=== PATIENT | female | born 1950 | race Caucasian/White ===

== ENCOUNTER 2016-09-12 14:39 | Inpatient (IN) | payer MEDICARE, OTHER ==
[~2016-09-12] VITALS: Ht 157.5 cm; Wt 85.9 kg
[~2016-09-12 14:39] MED LIST: ACYC200O PO; ANTIDEPRESSANT; ASPI81TA82 PO; BACT800T5 PO; COZA25TA PO; HYOS0.1251 PO; MINO100T PO; NEXI10GR PO; TRAZ50TA4 PO; ZOFR4TAB3 SL
[2016-09-12 14:43] VITALS: BP 122/63; PULSE 94; RESP 16; TEMP 98; O2SAT 96
[2016-09-12] MEDS ORDERED: LOSA25TA PO (14:59)
[2016-09-12] MEDS ORDERED: NEXI40CA PO (14:59)
[2016-09-12] MEDS ORDERED: ZOFR4TAB PO (14:59)
[2016-09-12] MEDS ORDERED: TRAZ100T4 PO (14:59)
[2016-09-12] MEDS ORDERED: SODIUM CHLOR 0.9% 1000 ML INJ 1,000 ML IV SCH (15:02)
[2016-09-12] MEDS ORDERED: MORPHINE SULFATE 4 MG/ML INJ IV PUSH ONE ×2 (15:15→17:45)
[2016-09-12] MEDS ORDERED: ONDANSETRON HCL 4 MG/2 ML VIAL IVP ONE (15:15)
[2016-09-12 15:41] LABS: AUTOMATED NEUTROPHIL # 5.7 TH/MM3 (1.8-7.7); BASOPHIL % 0.6 % (0.0-2.0); BLOOD, URINE NEG (NEG); EOSINOPHIL # 0.1 TH/MM3 (0-0.4); EOSINOPHIL % 1.4 % (0.0-4.0); GLUCOSE,URINE NEG (NEG); HEMATOCRIT 36.4 % (35.0-46.0); HEMO FLAGS DIFF FINAL; KETONE, URINE NEG (NEG); LYMPH % 10.3 % (9.0-44.0); LYMPHOCYTE # 0.7 TH/MM3 (1.0-4.8); MEAN CELL VOLUME 102.8 FL (80.0-100.0); MEAN CORPUSCULAR HEMOGLOBIN 34.6 PG (27.0-34.0); MEAN CORPUSCULAR HGB CONC 33.7 % (32.0-36.0); MONO % 9.9 % (0.0-8.0); NEUT % 77.8 % (16.0-70.0); NITRITE,URINE NEG (NEG); PH, URINE 6.5 (5.0-8.5); PLATELET COUNT 237 TH/MM3 (150-450); RED BLOOD COUNT 3.54 MIL/MM3 (4.00-5.30); RED CELL DISTRIBUTION WIDTH 12.8 % (11.6-17.2); WHITE BLOOD COUNT 7.2 TH/MM3 (4.0-11.0)
[2016-09-12 15:45] VITALS: BP 116/60; PULSE 89; RESP 16; O2SAT 97
[2016-09-12 15:45] LABS: METHOD OF COLLECTION CLEAN CATCH; SQUAMOUS EPITHELIAL CELL URINE 0-5 /hpf (0-5); URINE COLOR YELLOW (YELLW/STRAW)
[2016-09-12 15:46] LABS: COMMENT (UR) CULT NOT INDICATED; CULTURE IF INDICATED CULT NOT INDICATED
[2016-09-12 15:48] LABS: CHLORIDE 101 MEQ/L (98-107); POTASSIUM 3.5 MEQ/L (3.5-5.1); SODIUM (NA) 139 MEQ/L (136-145)
[2016-09-12 15:52] LABS: ANION GAP 11 MEQ/L (5-15); BICARBONATE 27.2 MEQ/L (21.0-32.0); BLOOD UREA NITROGEN 18 MG/DL (7-18)
[2016-09-12 15:54] LABS: ALT (GPT) 15 U/L (10-53); AST (GOT) 17 U/L (15-37)
--- NOTE | 2016-09-12 15:54 | PD ---
HPI Chief Complaint: Abdominal Pain Time Seen by Provider: 15:49 Travel History International Travel<30 days: No Contact w/Intl Traveler<30days: No Traveled to known affect area: No History of Present Illness HPI 66-year-old female that presents to the ED for evaluation of left lower quadrant abdominal pain. Per patient she's had this for about 3 days. Per patient the pain is sharp on the left lower quadrant. Worse by standing and movement better with sitting. Patient pain is 8 out of 10. She does state having a history of surgeries to the abdomen. She denies any nausea or vomiting. No bowel movement or urinary issues. Pain does not radiate. Denies any chest pain or shortness of breath. Allergies to multiple antibiotics. She has not seen anybody for this. She has not taken anything for this but she does tell me that she takes some antiemetic medications daily to help with chronic nausea. She denies any fevers chills or sweats. No new foods or recent travel. She states that she is able to keep stuff down. She denies any other symptom. No radiation of the pain. No rash. Pain is reproducible with touch. PFSH Past Medical History Hx Anticoagulant Therapy: No Depression: Yes Cardiovascular Problems: Yes (BYPASS, HTN, CHOL) Diabetes: No Diminished Hearing: No Diverticulitis: Yes Gastrointestinal Disorders: Yes Hypertension: Yes Psychiatric: Yes Immunizations Current: Yes Tetanus Vaccination: < 5 Years Influenza Vaccination: Yes ?: Not Menopausal: Yes Past Surgical History Abdominal Surgery: Yes (COLON RESECTION) Cardiac Surgery: Yes (AORTA COLLAPSE) Coronary Artery Bypass Graft: Yes Hysterectomy: Yes Social History Alcohol Use: Yes (1 LIQUOR OR WINE, DAILY; ) Tobacco Use: No Substance Use: No Allergies-Medications (Allergen,Severity, Reaction): Coded Allergies: Codeine (Verified Allergy, Severe, RASH, 09/12/16) Erythromycin (Verified Allergy, Severe, RASH, 09/12/16) Keflex (Verified Allergy, Severe, RASH, 09/12/16) Penicillin (Verified Allergy, Severe, RASH, 09/12/16) Flagyl (Verified Allergy, Intermediate, n/v, 09/12/16) Cipro (Verified Adverse Reaction, Intermediate, bellyache- n/v, 09/12/16) Reported Meds & Prescriptions Reported Meds & Active Scripts Active Reported Trazodone (Trazodone HCl) 100 Mg Tab 100 Mg PO HS Zofran (Ondansetron HCl) 4 Mg Tab 4 Mg PO Q6HR PRN Losartan (Losartan Potassium) 25 Mg Tab 25 Mg PO DAILY Nexium (Esomeprazole DR) 40 Mg Capdr 40 Mg PO DAILY [Antidepressant] DAILY Review of Systems General / Constitutional: No: Fever, Chills, Weight Gain, Weight Loss, Other Eyes: No: Diploplia, Blurred Vision, Photophobia, Drainage, Redness, Foreign Body Sensation, Pain, Tearing, Blind Spots, Visual changes, Blindness, Other HENT: No: Headaches, Vertigo, Lightheadedness, Sore Throat, Rhinitis, Rhinorrhea, Congestion, Nosebleed, Neck Stiffness, Neck Pain, Masses, Gingival Bleeding, Dental Difficulties, Ear Discharge, Earache, Other Cardiovascular: No: Chest Pain or Discomfort, Palpitations, Irregular Rhythm, Tachycardia, Diaphoresis, Syncope, Dyspnea on exertion, Varicosities, Edema, Cyanosis, Varicosities, Phlebitis, Claudication, Other Respiratory: No: Cough, Shortness of Breath, Wheezing, Sneezing, Orthopnea, Hemoptysis, Stridor, Night Sweats, Pleuritic Pain, Other Gastrointestinal: Positive: Abdominal Pain, No: Nausea, Vomiting, Diarrhea, Hematemesis, Hematochezia, Constipation, Changes in Bowel Habits, Indigestion, Dysphagia, Loss of Appetite, Other Genitourinary: No: Urgency, Frequency, Dysuria, Nocturia, Hematuria, Decreased Urinary Output, Oliguria, Hesitancy, Dribbling, Incontinence, Pelvic Pain, Flank Pain, Dyspareunia, Discharge, Dysmenorrhea, Menorrhagia, Metorrhagia, Vaginal Bleeding, Other Skin: No Rash, No Itching, No Dryness, No Lumps, No Hives, No Change in Pigmentation, No Change in nails, No Alopecia, No Lesions, No Breast Lumps, No Breast Tenderness, No Breast Swelling, No Other Neurologic: No: Weakness, Dizziness, Syncope, Focal Abnormalities, Coordination Problem, Tremor, Ataxia, Headache, Change in Mentation, Slurred Speech, Paresthesia, Incontinence, Seizures, Sensory Disturbance, Other Psychiatric: No: Anxiety, Depression, Suicidal Ideations, Disorder of Thought, Mood Disorder, Substance Abuse, Homicidal Ideation, Other Endocrine: No: Heat Intolerance, Cold Intolerance, Polyuria, Polydipsia, Other Hematologic/Lymphatic: No: Easy Bruising, Lymph Node Enlargement, Other Physical Exam Narrative GENERAL: SKIN: Warm and dry. HEAD: Atraumatic. Normocephalic. EYES: Pupils equal and round. No scleral icterus. No injection or drainage. ENT: No nasal bleeding or discharge. Mucous membranes pink and moist. Tongue is midline. No uvula deviation. NECK: Trachea midline. No JVD. CARDIOVASCULAR: Regular rate and rhythm. No murmurs, S3, S4. RESPIRATORY: No accessory muscle use. Clear to auscultation. Breath sounds equal bilaterally. GASTROINTESTINAL: Abdomen soft, patient has reproducible tenderness to palpation with deep palpation on the left lower quadrant, nondistended. Hepatic and splenic margins not palpable. MUSCULOSKELETAL: Extremities without clubbing, cyanosis, or edema. No obvious deformities. Full range of motion of the upper and lower extremities bilaterally. 2+ pulses bilaterally. NEUROLOGICAL: Awake and alert. No obvious cranial nerve deficits. Motor grossly within normal limits. Five out of 5 muscle strength in the arms and legs. Normal speech. PSYCHIATRIC: Appropriate mood and affect; insight and judgment normal. Data Data Last Documented VS Vital Signs Date Time Temp Pulse Resp B/P Pulse Ox O2 Delivery O2 Flow Rate FiO2 09/12/16 17:15 77 16 125/64 98 Room Air 09/12/16 14:43 98.0 Orders Complete Blood Count With Diff (09/12/16 15:02) Comprehensive Metabolic Panel (09/12/16 15:02) Lipase (09/12/16 15:02) Lactic Acid (09/12/16 15:02) Urinalysis - C+S If Indicated (09/12/16 15:02) Ct Abd/Pel W Iv Contrast(Rout) (09/12/16 15:02) Iv Access Insert/Monitor (09/12/16 15:02) Morphine Inj (Morphine Inj) (09/12/16 15:15) Ondansetron Inj (Zofran Inj) (09/12/16 15:15) Sodium Chlor 0.9% 1000 Ml Inj (Ns 1000 M (09/12/16 15:02) Iodixanol 320 Inj (Rad Ct) (Visipaque 32 (09/12/16 16:47) Piperacil-Tazo 2.25 Gm Premix (Zosyn 2.2 (09/12/16 17:45) Diphenhydramine Inj (Benadryl Inj) (09/12/16 17:45) Morphine Inj (Morphine Inj) (09/12/16 17:45) Admit Order (Ed Use Only) (09/12/16 17:42) Labs Laboratory Tests Test 09/12/16 14:30 White Blood Count 7.2 TH/MM3 Red Blood Count 3.54 MIL/MM3 Hemoglobin 12.3 GM/DL Hematocrit 36.4 % Mean Corpuscular Volume 102.8 FL Mean Corpuscular Hemoglobin 34.6 PG Mean Corpuscular Hemoglobin 33.7 % Concent Red Cell Distribution Width 12.8 % Platelet Count 237 TH/MM3 Mean Platelet Volume 7.4 FL Neutrophils (%) (Auto) 77.8 % Lymphocytes (%) (Auto) 10.3 % Monocytes (%) (Auto) 9.9 % Eosinophils (%) (Auto) 1.4 % Basophils (%) (Auto) 0.6 % Neutrophils # (Auto) 5.7 TH/MM3 Lymphocytes # (Auto) 0.7 TH/MM3 Monocytes # (Auto) 0.7 TH/MM3 Eosinophils # (Auto) 0.1 TH/MM3 Basophils # (Auto) 0.0 TH/MM3 CBC Comment DIFF FINAL Differential Comment Urine Collection Type CLEAN CATCH Urine Color YELLOW Urine Turbidity CLEAR Urine pH 6.5 Urine Specific [place] 1.014 Urine Protein NEG mg/dL Urine Glucose (UA) NEG mg/dL Urine Ketones NEG mg/dL Urine Occult Blood NEG Urine Nitrite NEG Urine Bilirubin NEG Urine Leukocyte Esterase NEG Urine Squamous Epithelial 0-5 /hpf Cells Microscopic Urinalysis Comment CULT NOT INDICATED Sodium Level 139 MEQ/L Potassium Level 3.5 MEQ/L Chloride Level 101 MEQ/L Carbon Dioxide Level 27.2 MEQ/L Anion Gap 11 MEQ/L Blood Urea Nitrogen 18 MG/DL Creatinine 1.40 MG/DL Estimat Glomerular Filtration 37 ML/MIN Rate Random Glucose 136 MG/DL Lactic Acid Level 2.5 mmol/L Calcium Level 8.8 MG/DL Total Bilirubin 0.4 MG/DL Aspartate Amino Transf 17 U/L (AST/SGOT) Alanine Aminotransferase 15 U/L (ALT/SGPT) Alkaline Phosphatase 57 U/L Total Protein 6.9 GM/DL Albumin 3.6 GM/DL Lipase 554 U/L [facility] Medical Decision Making Medical Screen Exam Complete: Yes Emergency Medical Condition: Yes Medical Record Reviewed: Yes Interpretation(s) CBC & BMP Diagram 09/12/16 14:30 lipase WNL UA negative Last Impressions Abdomen/Pelvis CT 09/12/16 1502 Signed Impressions: Service Date/Time: Wednesday, September 12, 2016 16:39 - CONCLUSION: 1. Acute diverticulitis proximal left colon without abscess, obstruction, free fluid or free air. Jack Crowley MD Differential Diagnosis Diverticulitis versus acute abdomen versus abscess versus muscle skeletal pain versus pancreatitis versus surgical abdomen Narrative Course 66-year-old female that presents to the ED for evaluation of left lower quadrant pain. Patient was properly examined and was found to have signs and symptoms consistent with left lower quadrant abdominal discomfort. Patient does have a history of surgery to her colon and there is Concern for obstruction although this appears to be less likely. I do recommend labs and imaging. My attending Dr. Vazquze evaluated the patient with me and agrees with plan. Labs and imaging chem back with a possible lactic acid as well as a CT positive for diverticulitis but no perforation or mass. Patient unfortunately is allergic to multiple medications. My attending Dr. 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 My attending recommends starting patient on Zosyn and Benadryl. Dr. Bush wanted me to speak with infectious disease. I spoke with Dr. hwang for infectious disease who agrees the patient just be started on Zosyn and Benadryl. She also recommends adding blood cultures as well as considering starting Diflucan. This will be discussed with Dr. Blair. Diagnosis Primary Impression: Diverticulitis large intestine w/o perforation or abscess w/bleeding Admitting Information Admitting Physician Requests: Observation Dilan Yip Sep 12, 2016 15:54
[2016-09-12 15:55] LABS: GLOMERULAR FILTRATION RATE 37 ML/MIN (>89)
[2016-09-12 15:56] LABS: TOTAL BILIRUBIN ADULT 0.4 MG/DL (0.2-1.0)
[2016-09-12 15:57] LABS: ALKALINE PHOSPHATASE 57 U/L (45-117)
[2016-09-12] MEDS ORDERED: IODIXANOL 320 MG/ML 10 ML VIAL (for Rad CT) IV ONE (16:47)
[2016-09-12 17:15] VITALS: BP 125/64; PULSE 77; RESP 16; O2SAT 98
--- NOTE | 2016-09-12 17:19 | RADHPO ---
EXAM DATE/TIME: 09/12/2016 16:39 [facility] COMPARISON: No previous studies available for comparison. INDICATIONS : Left lower abdomen pain for three days. IV CONTRAST: 46 cc Visipaque (iodixanol) IV ORAL CONTRAST: No oral contrast ingested. RADIATION DOSE: 11.56 CTDIvol (mGy) MEDICAL HISTORY : Diverticulitis. Hypertension. SURGICAL HISTORY : Hysterectomy. Colon resection.CABG ENCOUNTER: Initial ACUITY: 3 days PAIN SCALE: 6/10 LOCATION: Left lower quadrant TECHNIQUE: Volumetric scanning of the abdomen and pelvis was performed. Using automated exposure control and ad justment of the mA and/or kV according to patient size, radiation dose was kept as low as reasonably achievable to obtain optimal diagnostic quality images. FINDINGS: Lung bases are clear. No acute bony abnormality. Previous cholecystectomy with mild degree of biliary ductal dilatation. Several hepatic cysts noted. Spleen, adrenals, kidneys and pancreas demonstrate no acute findings. There is an area of focal mural thickening of the proximal left colon associated with colonic diverti cula and pericolonic fat stranding characteristic of diverticulitis. No abscess, obstruction, free fl uid or free air. Previous partial colon resection noted. CONCLUSION: 1. Acute diverticulitis proximal left colon without abscess, obstruction, free fluid or free air. Jack Crowley MD on September 12, 2016 at 17:14 Board Certified Radiologist. This report was verified electronically.
[2016-09-12] MEDS ORDERED: PIPERACIL-TAZO 2.25 GM PREMIX 50 ML IV ONE (17:45)
[2016-09-12] MEDS ORDERED: diphenhydrAMINE HCL 50 MG/ML VIAL IV PUSH ONE (17:45)
[2016-09-12] MEDS ORDERED: NALOXONE HCL 0.4 MG/ML AMP IV PRN (18:30)
[2016-09-12] MEDS ORDERED: ACETAMINOPHEN 325 MG TAB PO PRN (18:30)
[2016-09-12] MEDS ORDERED: ONDANSETRON HCL 4 MG/2 ML VIAL IVP PRN (18:30)
[2016-09-12] MEDS ORDERED: SODIUM CHLORIDE 0.9% FLUSH 5 ML FLUSH FLUSH PRN (18:30)
[2016-09-12 19:34] VITALS: BP 102/60; PULSE 72; RESP 18; O2SAT 96
[2016-09-12] MEDS: SODIUM CHLOR 0.9% 1000 ML INJ 1,000 ML IV SCH (19:40)
[2016-09-12 20:37] VITALS: BP 112/62; PULSE 74; RESP 18; O2SAT 97
[2016-09-12 21:30] VITALS: BP 110/70; PULSE 74; RESP 16; TEMP 99.4; O2SAT 97
[2016-09-12] MEDS: traZODone HCL 100 MG TAB PO SCH (22:23)
[2016-09-12] MEDS: SODIUM CHLORIDE 0.9% FLUSH 5 ML FLUSH FLUSH SCH (22:23)
[2016-09-12] MEDS: MORPHINE SULFATE 4 MG/ML INJ IV PUSH PRN (22:26)
[2016-09-13] MEDS: diphenhydrAMINE HCL 50 MG/ML VIAL IM SCH ×2 (00:03→06:31)
[2016-09-13] MEDS: PIPERACIL-TAZO 3.375 GM PREMIX 50 ML IV SCH ×2 (00:03→06:00)
[2016-09-13] MEDS: SODIUM CHLOR 0.9% 1000 ML INJ 1,000 ML IV SCH ×2 (00:04→14:24)
[2016-09-13 00:06] VITALS: BP 95/56; PULSE 69; RESP 12; TEMP 98.4; O2SAT 92
[2016-09-13] MEDS: MORPHINE SULFATE 4 MG/ML INJ IV PUSH PRN ×2 (03:36→07:58)
[2016-09-13] MEDS: ACETAMINOPHEN/HYDROcodone 325 MG/5 MG TAB PO PRN (06:31)
[2016-09-13 07:17] LABS: BICARBONATE 25.5 MEQ/L (21.0-32.0)
[2016-09-13] MEDS: SODIUM CHLORIDE 0.9% FLUSH 5 ML FLUSH FLUSH SCH ×2 (07:55→21:00)
[2016-09-13] MEDS: PANTOPRAZOLE SOD 40 MG DELAYED RELEASE TAB PO SCH (07:57)
[2016-09-13] MEDS: LOSARTAN 25 MG TAB PO SCH (07:57)
[2016-09-13 09:01] VITALS: BP 113/68; PULSE 76; RESP 18; TEMP 96.5; O2SAT 94
--- NOTE | 2016-09-13 10:50 | HHI.HP ---
[facility] Primary Care Physician No Primary Care Physician Admission Diagnosis acute diverticulitis Diagnoses: (1) Diverticulitis large intestine w/o perforation or abscess w/o bleeding Diagnosis: Principal (2) Gouty arthritis Diagnosis: Secondary (3) Hypertension Diagnosis: Secondary Chief Complaint: Abdominal pain Travel History International Travel<30 Days: No Contact w/Intl Traveler <30 Da: No Traveled to Known Affected Are: No History of Present Illness 66-year-old female with known history of hypertension, diverticulosis, intermittent diarrhea/constipation, gouty arthritis who presented to hospital because of abdominal pain. Patient states that for the last 34 days she is experiencing generalized abdominal pain mainly on the left side. She does have a regular calenderer, Dr. Rose. She did not contact him concerning her abdominal pain. Her last endoscopy was about a year ago, she indicates there is no abnormalities that time. Patient does have history of diverticulosis in which she is had colon resection because of diverticulitis. Patient had evaluation done emergency department found to have diverticulitis without perforation on CT scan. Patient is without any leukocytosis, there was some mild lactic acidosis. The patient had multiple drug allergies and because of that infectious disease was contacted for antibiotic recommendations. It was recommended to start patient on Zosyn with the use of Benadryl. Allergies were reviewed with the patient patient states that there has been no acute anaphylactic reaction with any other medications. She states that with Cipro and Flagyl she does get some GI upset. Keflex penicillin erythromycin she had developed a mild rash on her anterior chest. There is no indication of any shortness of breath, dyspnea, globus sensation, wheeze, facial edema, dysphagia. At the present time patient abdominal pain is improved. Patient states that she has intermittent diarrhea and constipation. She is not indicating she has any diarrhea at this time. There is no melena or hematochezia. Review of Systems Constitutional: DENIES: Diaphoretic episodes, Fatigue, Fever, Weight gain, Weight loss, Chills, Dizziness, Change in appetite, Night Sweats Eyes: DENIES: Blurred vision, Diplopia, Eye inflammation, Eye pain, Vision loss , Double Vision Ears, nose, mouth, throat: DENIES: Vertigo, Nasal discharge, Throat pain, Ear Pain, Running Nose, Sinus Pain Respiratory: DENIES: Apneas, Cough, Snoring, Wheezing, Hemoptysis, Sputum production, Shortness of breath Cardiovascular: DENIES: Chest pain, Palpitations, Syncope, Dyspnea on Exertion , Lower Extremity Edema, Orthopnea Gastrointestinal: COMPLAINS OF: Abdominal pain, DENIES: Black stools, Bloody stools, Constipation, Diarrhea, Nausea, Vomiting, Difficulty Swallowing, Anorexia Musculoskeletal: COMPLAINS OF: Joint pain (right great toe) Neurologic: DENIES: Abnormal gait, Headache, Localized weakness, Paresthesias, Seizures, Speech Problems, Tremor, Poor Balance Psychiatric: COMPLAINS OF: Anxiety, DENIES: Confusion, Mood changes, Depression Past Family Social History Past Medical History Hypertension History of diverticulosis, diverticulitis Gouty arthritis Anxiety Past Surgical History Colon resection for diverticulitis Aortic bypass surgery Tonsillectomy Urethral surgery Reported Medications Reported Meds & Active Scripts Active Reported Trazodone (Trazodone HCl) 100 Mg Tab 100 Mg PO HS Zofran (Ondansetron HCl) 4 Mg Tab 4 Mg PO Q6HR PRN Losartan (Losartan Potassium) 25 Mg Tab 25 Mg PO DAILY Nexium (Esomeprazole DR) 40 Mg Capdr 40 Mg PO DAILY [Antidepressant] DAILY Allergies: Coded Allergies: Codeine (Verified Allergy, Severe, RASH, 09/12/16) Erythromycin (Verified Allergy, Severe, RASH, 09/12/16) Keflex (Verified Allergy, Severe, RASH, 09/12/16) Penicillin (Verified Allergy, Severe, RASH, 09/12/16) Flagyl (Verified Allergy, Intermediate, n/v, 09/12/16) Cipro (Verified Adverse Reaction, Intermediate, bellyache- n/v, 09/12/16) Family History Reviewed is significant for her brother with an arrhythmia, unknown Social History Patient states that she does drink alcohol probably 4 times weekly. She did not indicate the quantity. Patient denies any tobacco or illicit drugs. Physical Exam Vital Signs Vital Signs Date Time Temp Pulse Resp B/P Pulse Ox O2 Delivery O2 Flow Rate FiO2 09/13/16 09:01 96.5 76 18 113/68 94 09/13/16 00:06 98.4 69 12 95/56 92 09/12/16 21:30 99.4 74 16 110/70 97 09/12/16 21:30 99.4 74 16 110/70 97 09/12/16 20:37 74 18 112/62 97 Room Air 09/12/16 20:36 78 18 97 09/12/16 19:35 18 09/12/16 19:34 72 18 102/60 96 Room Air 09/12/16 18:02 16 09/12/16 17:15 77 16 125/64 98 Room Air 09/12/16 15:48 16 09/12/16 15:45 89 16 116/60 97 Room Air 09/12/16 14:43 98.0 94 16 122/63 96 Physical Exam GENERAL: Well-developed, well-nourished, in no acute distress. alert and orientated HEENT: Head is normocephalic without any lesions or masses noted. Facial features are symmetric. Eyes: Pupils equal round reactive to light. Extraocular muscles are intact. Conjunctivae were clear. Oropharyngeal: Pharynx without any erythema edema. Tongue is midline without deviation. Buccal mucosa is moist without any masses or lesions NECK: Supple without any masses. Trachea midline no deviation. No JVD, no bruits are appreciated CARDIAC: Regular rhythm, regular rate. S1/S2 are heard. No murmurs gallops or rubs. LUNGS: Clear to auscultation bilaterally. No wheeze, rhonchi or rales. No use of accessory muscles on inspiration or expiration. ABDOMEN: Soft, mild tenderness noted in the left abdomen. Nondistended. Bowel sounds heard in all 4 quadrants. No organomegaly or masses. Negative rebound, negative guarding EXTREMITIES: No edema, pulses are equal bilaterally. No cyanosis or clubbing. There is erythema edema noted over the PIP joint of the right great toe NEUROLOGY: Mood and affect appear appropriate. Cranial nerves II through XII grossly intact. Muscle strength 5/5 in upper and lower extremities bilaterally. Deep tendon reflexes are 2+ in upper and lower extremities bilaterally. Laboratory Laboratory Tests Test 09/12/16 09/13/16 14:30 06:10 White Blood Count 7.2 Red Blood Count 3.54 Hemoglobin 12.3 Hematocrit 36.4 Mean Corpuscular Volume 102.8 Mean Corpuscular Hemoglobin 34.6 Mean Corpuscular Hemoglobin 33.7 Concent Red Cell Distribution Width 12.8 Platelet Count 237 Mean Platelet Volume 7.4 Neutrophils (%) (Auto) 77.8 Lymphocytes (%) (Auto) 10.3 Monocytes (%) (Auto) 9.9 Eosinophils (%) (Auto) 1.4 Basophils (%) (Auto) 0.6 Neutrophils # (Auto) 5.7 Lymphocytes # (Auto) 0.7 Monocytes # (Auto) 0.7 Eosinophils # (Auto) 0.1 Basophils # (Auto) 0.0 CBC Comment DIFF FINAL Differential Comment Urine Collection Type CLEAN CATCH Urine Color YELLOW Urine Turbidity CLEAR Urine pH 6.5 Urine Specific [place] 1.014 Urine Protein NEG Urine Glucose (UA) NEG Urine Ketones NEG Urine Occult Blood NEG Urine Nitrite NEG Urine Bilirubin NEG Urine Leukocyte Esterase NEG Urine Squamous Epithelial 0-5 Cells Microscopic Urinalysis Comment CULT NOT INDICATED Sodium Level 139 141 Potassium Level 3.5 4.0 Chloride Level 101 106 Carbon Dioxide Level 27.2 25.5 Anion Gap 11 10 Blood Urea Nitrogen 18 16 Creatinine 1.40 1.30 Estimat Glomerular Filtration 37 41 Rate Random Glucose 136 99 Lactic Acid Level 2.5 Calcium Level 8.8 8.1 Total Bilirubin 0.4 Aspartate Amino Transf 17 (AST/SGOT) Alanine Aminotransferase 15 (ALT/SGPT) Alkaline Phosphatase 57 Total Protein 6.9 Albumin 3.6 Lipase 554 Date/Time Procedure Status Source Growth 09/12/16 18:30 Aerobic Blood Culture Received Blood Peripheral Pending 09/12/16 18:30 Anaerobic Blood Culture Received Blood Peripheral Pending Result Diagram: 09/12/16 1430 09/13/16 0610 Imaging Last Impressions Abdomen/Pelvis CT 09/12/16 1502 Signed Impressions: Service Date/Time: Monday, September 12, 2016 16:39 - CONCLUSION: 1. Acute diverticulitis proximal left colon without abscess, obstruction, free fluid or free air. Jack Crowley MD Assessment and Plan Assessment and Plan Diverticulitis, uncomplicated: Patient with long history of diverticulosis and history of diverticulitis requiring colon resection. She is followed by a Dr. Rose. CT scan does indicate acute diverticulitis of the proximal left colon without abscess, obstruction, free fluid or free air. She does have multiple allergies to antibiotics. Infectious disease was contacted by ER physician and patient started on Zosyn with Benadryl. I discussed antibiotics with patient. She states that with Cipro and Flagyl she usually has GI upset, however she does have nausea on a daily basis. Penicillin and Keflex she usually develops redness to her anterior chest. No other symptoms of anaphylaxis. She has been on Zosyn without any symptoms. I discussed with infectious disease who indicates that we could start by mouth medication to include Augmentin, monitor for at least 2 doses and if she tolerates without any allergic reaction could discharge patient home. Patient with mildly elevated lactic acid level, repeat study was normal Elevated lipase level: CT scan does not indicate any acute pancreatitis. Recheck lipase level back to normal Chronic nausea: Continue Zofran Hypertension: Continue home medications Gouty arthritis: Patient states that she cannot take allopurinol because of her renal functions. I notify her to not start steroids due to acute diverticulitis infection. Start naproxen 500 mg twice daily DVT prevention: Sequential compression devices Written by Dalton Tolliver PA-C, acting as scribe for Dr. Blair on 09/13/16 at 1340. The documentation accurately reflects the work and decisions performed face-to- face by Dr. Blair on 09/13/16 at 1340. Problem Qualifiers (1) Hypertension: Qualified Code: I15.9 - Secondary hypertension Dalton Tolliver Sep 13, 2016 10:50 Diet: Healthy heart diet Medications per medication reconciliation Follow-up primary medical doctor one week Problem Qualifiers (1) Hypertension: Qualified Code: I15.9 - Secondary hypertension Dalton Tolliver Sep 13, 2016 10:50
[2016-09-13] MEDS ORDERED: diphenhydrAMINE HCL 25 MG CAP PO SCH (12:00)
[2016-09-13] MEDS: AMOXICILLIN/CLAVULANATE K 875 MG TAB PO SCH ×2 (12:15→21:10)
[2016-09-13] MEDS: NAPROXEN 500 MG TAB PO SCH ×2 (12:15→20:45)
[2016-09-13 12:46] VITALS: BP 127/75; PULSE 70; RESP 15; TEMP 97.7; O2SAT 95
[2016-09-13] MEDS ORDERED: diphenhydrAMINE HCL 50 MG/ML VIAL IV PUSH ONE (17:00)
[2016-09-13 18:40] VITALS: BP 107/78; PULSE 72; RESP 15; TEMP 97.7; O2SAT 99
[2016-09-13 20:00] VITALS: BP 142/80; PULSE 63; RESP 20; TEMP 98.3; O2SAT 97
[2016-09-13] MEDS: diphenhydrAMINE HCL 50 MG CAP PO PRN (20:45)
[2016-09-13] MEDS: traZODone HCL 100 MG TAB PO SCH (21:10)
[2016-09-14] VITALS: BP 120/64; PULSE 58; RESP 20; TEMP 98.1; O2SAT 95
[2016-09-14] MEDS: SODIUM CHLOR 0.9% 1000 ML INJ 1,000 ML IV SCH ×2 (00:24→10:00)
[2016-09-14] MEDS: ACETAMINOPHEN/HYDROcodone 325 MG/5 MG TAB PO PRN (05:17)
[2016-09-14 08:00] VITALS: BP 128/75; PULSE 60; RESP 18; TEMP 97.2; O2SAT 98
--- NOTE | 2016-09-14 08:20 | HHI.PR ---
Subjective Remarks Patient seen and examined today with Dr. Blair. Patient states that she is doing much better. Still have some mild cramping in the left upper abdomen. Patient denies any rash, globus sensation, shortness of breath, dyspnea, facial edema. Patient did have some mild itching but that has resolved with the use of Benadryl. Objective Vitals Vital Signs Date Time Temp Pulse Resp B/P Pulse Ox O2 Delivery O2 Flow Rate FiO2 09/14/16 00:00 98.1 58 20 120/64 95 09/13/16 20:00 98.3 63 20 142/80 97 09/13/16 18:40 97.7 72 15 107/78 99 09/13/16 12:46 97.7 70 15 127/75 95 09/13/16 09:01 96.5 76 18 113/68 94 I/O 09/13/16 09/13/16 09/13/16 09/14/16 09/14/16 09/14/16 07:00 15:00 23:00 07:00 15:00 23:00 Intake Total 1640 ml 60 ml Balance 1640 ml 60 ml Intake Oral 1640 ml 60 ml # Voids 2 5 1 # Bowel Movements 1 0 Result Diagram: 09/12/16 1430 09/13/16 0610 Objective Remarks GENERAL: Well-developed, well-nourished, in no acute distress. alert and orientated HEENT: Head is normocephalic without any lesions or masses noted. Facial features are symmetric. Eyes: Extraocular muscles are intact. Conjunctivae were clear. NECK: Supple without any masses. Trachea midline no deviation. No JVD, CARDIAC: Regular rhythm, regular rate. S1/S2 are heard. No murmurs gallops or rubs. LUNGS: Clear to auscultation bilaterally. No wheeze, rhonchi or rales. No use of accessory muscles on inspiration or expiration. ABDOMEN: Soft, mild tenderness left abdomen. Nondistended. Bowel sounds heard in all 4 quadrants. No organomegaly or masses. Negative rebound, negative guarding EXTREMITIES: No edema, pulses are equal bilaterally. No cyanosis or clubbing NEUROLOGY: Mood and affect appear appropriate. Cranial nerves II through XII grossly intact. Moving all extremities, speech is clear Urinary Catheter: No Vascular Central Line Catheter: No A/P Assessment and Plan Diverticulitis, uncomplicated: Patient with long history of diverticulosis and history of diverticulitis requiring colon resection. She is followed by a Dr. Rose. CT scan does indicate acute diverticulitis of the proximal left colon without abscess, obstruction, free fluid or free air. She does have multiple allergies to antibiotics. Infectious disease was contacted by ER physician and patient started on Zosyn with Benadryl. I discussed antibiotics with patient. She states that with Cipro and Flagyl she usually has GI upset, however she does have nausea on a daily basis. Penicillin and Keflex she usually develops redness to her anterior chest. No other symptoms of anaphylaxis. She did receive Zosyn without any symptoms. I discussed with infectious disease who indicates that we could start by mouth medication to include Augmentin, monitor for at least 2 doses and if she tolerates without any allergic reaction could discharge patient home. Patient with mildly elevated lactic acid level, repeat study was normal. Patient has tolerated Augmentin without any acute allergic reactions. Discussed with the patient to continued to premedicate with Benadryl prior to antibiotic use. She does understand. Elevated lipase level: CT scan does not indicate any acute pancreatitis. Recheck lipase level back to normal Chronic nausea: Continue Zofran Hypertension: Continue home medications Gouty arthritis: Patient states that she cannot take allopurinol because of her renal functions. I notify her to not start steroids due to acute diverticulitis infection. Continue naproxen 500 mg twice daily DVT prevention: Sequential compression devices Written by Dalton Tolliver PA-C, acting as scribe for Dr. Blair on 09/14/16 at 940. The documentation accurately reflects the work and decisions performed face-to- face by Dr. Blair on 09/14/16 at 940. Discharge Planning Discharge home in stable condition Activity: Ad valeri. Diet: Healthy heart diet Medications per medication reconciliation Follow-up primary medical doctor one week Dalton Tolliver Sep 14, 2016 08:20
[2016-09-14] MEDS ORDERED: AMOX875T2 PO (08:22)
[2016-09-14] MEDS ORDERED: DIPH50CA PO (08:22)
[2016-09-14] MEDS ORDERED: NAPR500 PO (08:22)
--- NOTE | 2016-09-14 08:22 | HHI.DCPOC ---
Discharge Care Plan Diagnosis: (1) Diverticulitis large intestine w/o perforation or abscess w/o bleeding Goals to Promote Your Health * To prevent worsening of your condition and complications * To maintain your health at the optimal level Directions to Meet Your Goals Take your medications as prescribed Follow your dietary instruction Follow activity as directed Keep your appointments as scheduled Take your immunizations and boosters as scheduled If your symptoms worsen call your PCP, if no PCP go to Urgent Care Center or Emergency Room Smoking is Dangerous to Your Health. Avoid second hand smoke Call the 24-hour hour crisis hotline for domestic abuse at Dalton Tolliver Sep 14, 2016 08:22
[2016-09-14] MEDS: diphenhydrAMINE HCL 50 MG CAP PO PRN (08:31)
[2016-09-14] MEDS: SODIUM CHLORIDE 0.9% FLUSH 5 ML FLUSH FLUSH SCH (08:32)
[2016-09-14] MEDS ORDERED: HYDR-3516 PO (08:51)
[2016-09-14] MEDS: AMOXICILLIN/CLAVULANATE K 875 MG TAB PO SCH (09:03)
[2016-09-14] MEDS: NAPROXEN 500 MG TAB PO SCH (09:03)
[2016-09-14] MEDS: PANTOPRAZOLE SOD 40 MG DELAYED RELEASE TAB PO SCH (09:03)
[2016-09-14] MEDS: LOSARTAN 25 MG TAB PO SCH (09:04)
[2016-09-14 10:03] VITALS: RESP 18
== END 2016-09-14 11:40 | disposition home or self-care (01) | DRG 392 ==
LOC: PHED 14:39 → PHEDA 17:44 → OBSVTOIN 18:24 → PH3A 20:21
PROVIDERS: ADMIT Family Medicine; ATTEND Family Medicine
DX: K57.32 Diverticulitis of large intestine without perforation or abscess without bleeding (principal); E87.2 Acidosis; I10 Essential (primary) hypertension; M10.9 Gout, unspecified; K59.00 Constipation, unspecified
CPT/HCPCS: 74177; 80048; 80053; 81001; 83605; 83690; 85025; 87040; 96361; 96374; 96375; J1200; J2270; J2405; J2543; J7030; Q0163; Q9967

== ENCOUNTER 2016-12-23 10:55 | Emergency (ER) | payer MEDICARE, OTHER ==
[~2016-12-23] VITALS: Ht 157.5 cm; Wt 67.8 kg
[~2016-12-23 10:55] MED LIST changes: -ACYC200O PO; +AMOX875T2 PO; -ASPI81TA82 PO; -BACT800T5 PO; -COZA25TA PO; +DIPH50CA PO; +HYDR-3516 PO; -HYOS0.1251 PO; +LOSA25TA PO; -MINO100T PO; +NAPR500 PO; -NEXI10GR PO; +NEXI40CA PO; +TRAZ100T4 PO; -TRAZ50TA4 PO; +ZOFR4TAB PO; -ZOFR4TAB3 SL
[2016-12-23 11:07] VITALS: BP 143/82; PULSE 74; RESP 16; TEMP 98.2; O2SAT 98
[2016-12-23] MEDS ORDERED: TRAZ300T2 PO (12:13)
[2016-12-23] MEDS ORDERED: CYAN1000P IM (12:13)
[2016-12-23] MEDS ORDERED: ALLO100T PO (12:13)
[2016-12-23] MEDS ORDERED: SIMV10TA PO (12:13)
[2016-12-23 12:34] LABS: BLOOD, URINE NEG (NEG); GLUCOSE,URINE NEG (NEG); KETONE, URINE NEG (NEG); NITRITE,URINE NEG (NEG); PH, URINE 7.5 (5.0-8.5)
[2016-12-23 12:40] LABS: AUTOMATED NEUTROPHIL # 3.8 TH/MM3 (1.8-7.7); BASOPHIL % 0.8 % (0.0-2.0); EOSINOPHIL # 0.1 TH/MM3 (0-0.4); EOSINOPHIL % 1.5 % (0.0-4.0); HEMATOCRIT 37.8 % (35.0-46.0); HEMO FLAGS DIFF FINAL; LYMPH % 20.3 % (9.0-44.0); LYMPHOCYTE # 1.2 TH/MM3 (1.0-4.8); MEAN CELL VOLUME 102.3 FL (80.0-100.0); MEAN CORPUSCULAR HEMOGLOBIN 34.2 PG (27.0-34.0); MEAN CORPUSCULAR HGB CONC 33.4 % (32.0-36.0); MONO % 10.3 % (0.0-8.0); NEUT % 67.1 % (16.0-70.0); PLATELET COUNT 235 TH/MM3 (150-450); RED CELL DISTRIBUTION WIDTH 13.6 % (11.6-17.2); WHITE BLOOD COUNT 5.7 TH/MM3 (4.0-11.0)
[2016-12-23 12:41] LABS: BACTERIA, URINE FEW /hpf; COMMENT (UR) CULT NOT INDICATED; CULTURE IF INDICATED CULT NOT INDICATED; METHOD OF COLLECTION CLEAN CATCH; RBC, URINE 0-3 /hpf (0-3); SQUAMOUS EPITHELIAL CELL URINE > 8 /hpf (0-5); URINE COLOR YELLOW (YELLW/STRAW)
[2016-12-23 12:45] LABS: CHLORIDE 102 MEQ/L (98-107); POTASSIUM 3.8 MEQ/L (3.5-5.1); SODIUM (NA) 141 MEQ/L (136-145)
[2016-12-23 12:50] LABS: ANION GAP 8 MEQ/L (5-15); BICARBONATE 30.8 MEQ/L (21.0-32.0); BLOOD UREA NITROGEN 20 MG/DL (7-18)
[2016-12-23 12:53] LABS: ALT (GPT) 18 U/L (10-53); AST (GOT) 19 U/L (15-37); GLOMERULAR FILTRATION RATE 55 ML/MIN (>89)
[2016-12-23 12:54] LABS: TOTAL BILIRUBIN ADULT 0.5 MG/DL (0.2-1.0)
[2016-12-23 12:56] LABS: ALKALINE PHOSPHATASE 58 U/L (45-117)
--- NOTE | 2016-12-23 13:34 | PD ---
HPI Chief Complaint: Flank/Kidney Pain Time Seen by Provider: 12:10 Travel History International Travel<30 days: No Contact w/Intl Traveler<30days: No Traveled to known affect area: No History of Present Illness HPI This is a 66-year-old female who presents to the emergency department saying that she is having pain in her back on both sides, constant, moderate severity that's been going on for 2 weeks. She says she was hospitalized in [place] on Wednesday and was told that she has kidney disease and that they're not filtering well and she was told she needs to follow-up with a machine icer here in [facility]. She said she called a machine icer but they couldn't get her in for a month and she was concerned about her kidney so she came to the emergency department. She says her urine is normal and she thinks is been a little more yellow than usual. She also says that her gout is acting up and all of her joints are hurting her. PFSH Past Medical History Hx Anticoagulant Therapy: No Arthritis: Yes (HANDS ) Anxiety: Yes Depression: Yes Cancer: Yes (SKIN) Cardiovascular Problems: Yes (BYPASS-2002) High Cholesterol: Yes Diabetes: No Diminished Hearing: No Diverticulitis: Yes Endocrine: No Gastrointestinal Disorders: Yes Genitourinary: Yes Hypertension: Yes Immune Disorder: No Implanted Vascular Access Dvce: No Musculoskeletal: Yes Neurologic: No Psychiatric: Yes Respiratory: No Immunizations Current: Yes Menopausal: Yes Past Surgical History Abdominal Surgery: Yes (COLON RESECTION) Cardiac Surgery: Yes (AORTA COLLAPSE) Coronary Artery Bypass Graft: Yes Genitourinary Surgery: Yes (ELONGATE THE URETHRA) Hysterectomy: Yes Oral Surgery: Yes (TONSILLECTOMY ) Other Surgery: Yes Social History Alcohol Use: Yes (1 LIQUOR OR WINE, DAILY; ) Tobacco Use: No Substance Use: No Allergies-Medications (Allergen,Severity, Reaction): Coded Allergies: Codeine (Verified Allergy, Severe, RASH, 12/23/16) Erythromycin (Verified Allergy, Severe, RASH, 12/23/16) Keflex (Verified Allergy, Severe, RASH, 12/23/16) Penicillin (Verified Allergy, Severe, RASH, 12/23/16) Flagyl (Verified Allergy, Intermediate, n/v, 12/23/16) Cipro (Verified Adverse Reaction, Intermediate, bellyache- n/v, 12/23/16) Reported Meds & Prescriptions Reported Meds & Active Scripts Active Hydrocodone-Acetaminophen 5-325 mg Tab 1 Tab PO Q6H PRN Naprosyn (Naproxen) 500 Mg Tab 500 Mg PO Q12HR Reported Simvastatin 10 Mg Tab 10 Mg PO DAILY Cyanocobalamin Inj (Cyanocobalamin) 1,000 Mcg/Ml Inj 1,000 Mcg IM Q30D Trazodone (Trazodone HCl) 300 Mg Tab 200 Mg PO HS Allopurinol 100 Mg Tab 100 Mg PO DAILY Zofran (Ondansetron HCl) 4 Mg Tab 4 Mg PO Q6HR PRN Losartan (Losartan Potassium) 25 Mg Tab 25 Mg PO DAILY Nexium (Esomeprazole DR) 40 Mg Capdr 40 Mg PO DAILY Review of Systems Except as stated in HPI: all other systems reviewed are Neg Physical Exam Narrative GENERAL:Well appearing, no acute distress SKIN: Focused skin assessment warm and dry. HEAD: Atraumatic. Normocephalic. EYES: Pupils equal and round. No injection or drainage. ENT: Moist mucous membranes NECK: Trachea midline. CARDIOVASCULAR: Regular rate and rhythm. No murmur appreciated. RESPIRATORY: Clear to auscultation. Breath sounds equal bilaterally. GASTROINTESTINAL: Abdomen soft, non-tender, nondistended. MUSCULOSKELETAL: No obvious deformities. NEUROLOGICAL: Awake and alert. No obvious cranial nerve deficits. Moving all extremities. PSYCHIATRIC: Appropriate mood and affect; insight and judgment normal. Data Data Last Documented VS Vital Signs Date Time Temp Pulse Resp B/P Pulse Ox O2 Delivery O2 Flow Rate FiO2 12/23/16 11:07 98.2 74 16 143/82 98 Orders Complete Blood Count With Diff (12/23/16 12:15) Comprehensive Metabolic Panel (12/23/16 12:15) ^ Insert Iv (12/23/16 12:15) Urinalysis - C+S If Indicated (12/23/16 12:15) Labs Laboratory Tests Test 12/23/16 12:28 White Blood Count 5.7 TH/MM3 Red Blood Count 3.70 MIL/MM3 Hemoglobin 12.6 GM/DL Hematocrit 37.8 % Mean Corpuscular Volume 102.3 FL Mean Corpuscular Hemoglobin 34.2 PG Mean Corpuscular Hemoglobin 33.4 % Concent Red Cell Distribution Width 13.6 % Platelet Count 235 TH/MM3 Mean Platelet Volume 7.2 FL Neutrophils (%) (Auto) 67.1 % Lymphocytes (%) (Auto) 20.3 % Monocytes (%) (Auto) 10.3 % Eosinophils (%) (Auto) 1.5 % Basophils (%) (Auto) 0.8 % Neutrophils # (Auto) 3.8 TH/MM3 Lymphocytes # (Auto) 1.2 TH/MM3 Monocytes # (Auto) 0.6 TH/MM3 Eosinophils # (Auto) 0.1 TH/MM3 Basophils # (Auto) 0.0 TH/MM3 CBC Comment DIFF FINAL Differential Comment Urine Collection Type CLEAN CATCH Urine Color YELLOW Urine Turbidity CLEAR Urine pH 7.5 Urine Specific [place] 1.028 Urine Protein 30 mg/dL Urine Glucose (UA) NEG mg/dL Urine Ketones NEG mg/dL Urine Occult Blood NEG Urine Nitrite NEG Urine Bilirubin NEG Urine Leukocyte Esterase NEG Urine RBC 0-3 /hpf Urine WBC 3-5 /hpf Urine Squamous Epithelial > 8 /hpf Cells Urine Bacteria FEW /hpf Microscopic Urinalysis Comment CULT NOT INDICATED Urine Collection Time 12:28 Sodium Level 141 MEQ/L Potassium Level 3.8 MEQ/L Chloride Level 102 MEQ/L Carbon Dioxide Level 30.8 MEQ/L Anion Gap 8 MEQ/L Blood Urea Nitrogen 20 MG/DL Creatinine 1.00 MG/DL Estimat Glomerular Filtration 55 ML/MIN Rate Random Glucose 97 MG/DL Calcium Level 9.0 MG/DL Total Bilirubin 0.5 MG/DL Aspartate Amino Transf 19 U/L (AST/SGOT) Alanine Aminotransferase 18 U/L (ALT/SGPT) Alkaline Phosphatase 58 U/L Total Protein 6.0 GM/DL Albumin 3.4 GM/DL [facility] Medical Decision Making Medical Screen Exam Complete: Yes Emergency Medical Condition: Yes Interpretation(s) Afebrile, hypertensive No leukocytosis Electrolytes are reassuring Urinalysis is negative for infection Differential Diagnosis Kidney failure, kidney stone, electrolyte abnormality, urinary tract infection, pyelonephritis Narrative Course This is a 66-year-old female who presents to the emergency department reporting that she was told she has kidney disease back in [place] on Wednesday and she needs to see a machine icer. She said she couldn't get into a machine icer that she came here. Labs were obtained which demonstrate normal kidney function. When I told her about her normal kidney function she got very angry saying that she needs her pain treated, and that she has pain all over. I was really surprised by her response She hadn't been complaining much of pain upon arrival and she seemed more concerned with her kidney function. I offered to do some more imaging of her abdomen to see where her pain is coming from but she said she just wants to leave and she's getting her back to [place] and "doctors here crazy". I doubt this reflects a medical or surgical emergency. Patient will be discharged home. Diagnosis Primary Impression: Pain Patient Instructions: General Instructions Additional Instructions: If you develop severe or worsening abdominal pain, fever>100.4, persistent vomiting or inability to eat or drink return to the emergency department immediately. Follow up with your primary care physician in 1-2 days for a check-up. Med/Other Pt SpecificInfo: No Change to Meds Disposition: 01 DISCHARGE HOME Condition: Stable Federica Huynh MD December 23, 2016 13:34
== END 2016-12-23 13:50 | disposition home or self-care (01) ==
LOC: PHED 10:55
DX: M54.9 Dorsalgia, unspecified (principal); N28.9 Disorder of kidney and ureter, unspecified; M10.9 Gout, unspecified; M19.90 Unspecified osteoarthritis, unspecified site; F32.9 Major depressive disorder, single episode, unspecified; E78.00 Pure hypercholesterolemia, unspecified; K57.92 Diverticulitis of intestine, part unspecified, without perforation or abscess without bleeding; I10 Essential (primary) hypertension; F41.9 Anxiety disorder, unspecified
CPT/HCPCS: 80053; 81001; 85025; 99283

== ENCOUNTER 2017-01-18 13:31 | Emergency (ER) | payer MEDICARE, OTHER ==
[~2017-01-18] VITALS: Ht 157.5 cm; Wt 67.1 kg
[~2017-01-18 13:31] MED LIST changes: +ALLO100T PO; -AMOX875T2 PO; -ANTIDEPRESSANT; +CYAN1000P IM; -DIPH50CA PO; +SIMV10TA PO; -TRAZ100T4 PO; +TRAZ300T2 PO
[2017-01-18 13:33] VITALS: BP 147/90; PULSE 100; RESP 18; TEMP 98; O2SAT 99
[2017-01-18] MEDS ORDERED: PRED20 PO (14:42)
--- NOTE | 2017-01-18 14:43 | PD ---
HPI Chief Complaint: Musculoskeletal Complaint Time Seen by Provider: 14:00 Travel History International Travel<30 days: No Contact w/Intl Traveler<30days: No Traveled to known affect area: No History of Present Illness HPI 66-year-old female presents to emergency department for evaluation of "gout attack" in her right great toe 7 days. Patient reports she has history of gout and frequent attacks within this same digit. She reports the symptoms are similar to her previous gout attacks. Patient currently on allopurinol. She reports the pain is constant, nonradiating, worse with movement, unrelieved by her current pain medicine, severity 6 out of 10. She denies fever, chills, nausea, or vomiting. PFSH Past Medical History Hx Anticoagulant Therapy: No Arthritis: Yes (HANDS ) Anxiety: Yes Depression: Yes Cancer: Yes (skin) Cardiovascular Problems: Yes (CABG X2) High Cholesterol: Yes Diabetes: No Diminished Hearing: No Diverticulitis: Yes Endocrine: No Gastrointestinal Disorders: Yes Gout: Yes Genitourinary: Yes Hypertension: Yes Immune Disorder: No Implanted Vascular Access Dvce: No Musculoskeletal: Yes Neurologic: No Psychiatric: Yes Respiratory: No Immunizations Current: Yes Tetanus Vaccination: < 5 Years Influenza Vaccination: Yes Menopausal: Yes Past Surgical History Abdominal Surgery: Yes (colon resection ) Cardiac Surgery: Yes (AORTA COLLAPSE) Cholecystectomy: Yes Coronary Artery Bypass Graft: Yes Genitourinary Surgery: Yes (ELONGATE THE URETHRA) Hysterectomy: Yes Oral Surgery: Yes (TONSILLECTOMY ) Other Surgery: Yes (multiple toe surgeries, facial surgeries) Social History Alcohol Use: No Tobacco Use: No Substance Use: No Allergies-Medications (Allergen,Severity, Reaction): Coded Allergies: Codeine (Verified Allergy, Severe, RASH, 01/18/17) Erythromycin (Verified Allergy, Severe, RASH, 01/18/17) Keflex (Verified Allergy, Severe, RASH, 01/18/17) Penicillin (Verified Allergy, Severe, RASH, 01/18/17) Flagyl (Verified Allergy, Intermediate, n/v, 01/18/17) Cipro (Verified Adverse Reaction, Intermediate, bellyache- n/v, 01/18/17) Reported Meds & Prescriptions Reported Meds & Active Scripts Active Prednisone 20 Mg Tab 40 Mg PO DAILY Take 40 mg (2 tablets) daily for 5 days Hydrocodone-Acetaminophen 5-325 mg Tab 1 Tab PO Q6H PRN Reported Cyanocobalamin Inj (Cyanocobalamin) 1,000 Mcg/Ml Inj 1,000 Mcg IM Q30D Trazodone (Trazodone HCl) 300 Mg Tab 200 Mg PO HS Allopurinol 100 Mg Tab 100 Mg PO DAILY Zofran (Ondansetron HCl) 4 Mg Tab 4 Mg PO Q6HR PRN Losartan (Losartan Potassium) 25 Mg Tab 25 Mg PO DAILY Nexium (Esomeprazole DR) 40 Mg Capdr 40 Mg PO DAILY Review of Systems Except as stated in HPI: all other systems reviewed are Neg Musculoskeletal: Positive: Other (pain right great toe) Physical Exam Narrative GENERAL: Alert, well-appearing female. SKIN: Focused skin assessment warm/dry. HEAD: Atraumatic. Normocephalic. EYES: Pupils equal and round. No scleral icterus. No injection or drainage. ENT: No nasal bleeding or discharge. Mucous membranes pink and moist. NECK: Trachea midline. No JVD. CARDIOVASCULAR: Regular rate and rhythm. No murmur appreciated. RESPIRATORY: No accessory muscle use. Clear to auscultation. Breath sounds equal bilaterally. GASTROINTESTINAL: Abdomen soft, non-tender, nondistended. Hepatic and splenic margins not palpable. MUSCULOSKELETAL: No obvious deformities. No clubbing. No cyanosis. No edema. First metatarsophalangeal joint mildly swollen with erythema and warmth. Tender to palpation. NEUROLOGICAL: Awake and alert. No obvious cranial nerve deficits. Motor grossly within normal limits. Normal speech. PSYCHIATRIC: Appropriate mood and affect; insight and judgment normal. Data Data Last Documented VS Vital Signs Date Time Temp Pulse Resp B/P Pulse Ox O2 Delivery O2 Flow Rate FiO2 01/18/17 13:33 98.0 100 18 147/90 99 Orders Ketorolac Inj (Toradol Inj) (01/18/17 14:45) [facility] Medical Decision Making Medical Screen Exam Complete: Yes Emergency Medical Condition: Yes Differential Diagnosis Gout versus pseudogout versus septic arthritis Narrative Course 66-year-old female since emergency department for evaluation of stated gout attack in her right great toe. Patient has history of gout in the past she reports multiple episodes within this toe. She reports the pain and symptoms are similar to previous attacks. She reports steroids usually improve her symptoms. Patient is nontoxic appearing. Her symptoms are consistent with gout within the right great toe. Patient will be put on steroids. Instructed to follow-up with her primary care doctor. Discussed gout diet. Diagnosis Primary Impression: Gouty arthritis Referrals: Primary Care Physician Additional Instructions: Take medications as prescribed. Follow-up with her primary care doctor for reevaluation. Return to the emergency department if he developed new or worsening symptoms. Scripts Prednisone 20 Mg Tab40 Mg PO DAILY #10 TAB Ref 0 Take 40 mg (2 tablets) daily for 5 days Prov:Mary Armendariz 01/18/17 Disposition: 01 DISCHARGE HOME Condition: Stable Mary Armendariz Jan 18, 2017 14:43
[2017-01-18] MEDS ORDERED: KETOROLAC TROMETHAMINE 60 MG/2 ML (IM) VIAL IM ONE (14:45)
== END 2017-01-18 15:01 | disposition home or self-care (01) ==
LOC: PHEFT 13:31
DX: M10.00 Idiopathic gout, unspecified site (principal); Z88.0 Allergy status to penicillin; I10 Essential (primary) hypertension; E78.00 Pure hypercholesterolemia, unspecified; Z95.1 Presence of aortocoronary bypass graft
CPT/HCPCS: 96372; 99284; J1885